=== PATIENT | female | born 2000 | race Caucasian/White ===

== ENCOUNTER → 2021-12-27 | Outpatient (CLI) | payer OTHER | LOC: M CARPUL 12:09 | DX: R06.00 Dyspnea, unspecified (principal) ==

== ENCOUNTER → 2022-10-15 | Outpatient (REF) | LOC: M PLAIMG 11:57 | PROVIDERS: ATTEND Internal Medicine | DX: R52 Pain, unspecified (principal) ==

== ENCOUNTER → 2023-01-29 | Outpatient (CLI) | payer OTHER | LOC: M PLAIMG 12:32 → EDSEX 13:00 | PROVIDERS: ATTEND Physician Assistant Medical | DX: R51.9 Headache, unspecified (principal) ==